=== PATIENT | female | born 1955 | race Caucasian/White ===

== ENCOUNTER → 2017-08-23 | Outpatient (CLI) | payer BC ==
--- NOTE | 2017-08-23 14:34 | CT ---
EXAMINATION TYPE: CT abdomen wo con DATE OF EXAM: 08/23/2017 COMPARISON: NONE HISTORY: Abdominal pain CT DLP: 372 mGycm Examination of the solid and hollow viscera is limited given the lack of intravenous contrast. GI con trast was administered. FINDINGS: LUNG BASES: No evidence for nodule. No evidence for infiltrate. Linear scar left lung base. LIVER/GB: The gallbladder is unremarkable. No space-occupying hepatic lesion. PANCREAS: No pancreatic mass identified. No inflammatory process seen. SPLEEN: No evidence for splenomegaly. No intrasplenic lesions seen. ADRENALS: No adrenal nodules identified. No evidence for thickening. KIDNEYS: No evidence for renal mass. No nephrolithiasis. No hydronephrosis. BOWEL: Appendix has a normal appearance. No evidence of bowel obstruction. No inflammatory process. Lymph nodes: No evidence for adenopathy greater than 1 cm. Abdominal aorta: Atheromatous changes seen. No evidence for aneurysm. Other: No significant abnormality. IMPRESSION: NO SIGNIFICANT ABNORMALITY APPRECIATED.
== END | disposition home or self-care (01) ==
LOC: RADCTMAIN 11:21
PROVIDERS: ATTEND Family Medicine
DX: R10.9 Unspecified abdominal pain (principal)
CPT/HCPCS: 74150

== ENCOUNTER → 2017-08-24 | Outpatient (CLI) | payer BC ==
--- NOTE | 2017-08-24 14:02 | US ---
EXAMINATION TYPE: US gallbladder DATE OF EXAM: 08/24/2017 COMPARISON: CT abdomen from yesterday. CLINICAL HISTORY: R10.11 right upper quadrant pain. right flank and RLQ pain; patient feels muscle sp asms with NPO status; patient stated was told had elevated pancreatic enzymes EXAM MEASUREMENTS: Liver Length: 15.5 cm Gallbladder Wall: 0.1 cm CBD: 0.6 cm near head of pancreas Right Kidney: cm Pancreas: wnl Liver: wnl Gallbladder: wnl Evidence for sonographic Choudhary's sign: No CBD: prominent at yahir hepatis, then size wnl at head of pancreas Right Kidney: No hydronephrosis or masses seen Aorta: upper size is wnl Visualized pancreas is unremarkable on ultrasound images saved. Visualized liver shows no worrisome i ntrahepatic mass or intrahepatic ductal dilatation. IMPRESSION: No gallstones or ultrasound evidence for acute cholecystitis. No significant change from recent CT.
== END | disposition home or self-care (01) ==
LOC: RADUSWWP 12:56
PROVIDERS: ATTEND Family Medicine
DX: R10.11 Right upper quadrant pain (principal)
CPT/HCPCS: 76705

== ENCOUNTER 2017-11-01 20:15 | Emergency (ER) | payer BC ==
[2017-11-01 20:44] VITALS: RESP 18
--- NOTE | 2017-11-01 21:04 | ED ---
General Adult HPI - General Chief complaint: Head Injury Stated complaint: Fell 5 ft/Lac/Head Time Seen by Provider: 11/01/17 20:40 Source: patient, RN notes reviewed Mode of arrival: ambulatory Limitations: no limitations - History of Present Illness Initial comments: Patient is a 7-year-old female who presents emergency room today with a chief complaint of a fall that occurred approximately 5 hours ago. She does admit that she was in her attic she fell down some stairs hitting the back of her head. States he was no loss of consciousness. She does admit that it did cause an abrasion to her head. She states she called her son who is an EMT came and checked him out. He states that she's been feeling fine since. She states that she has had a few episodes of bleeding to the back of her head. She states she was at dinner and decided to come here to the emergency room to have it checked. Patient states she believes her tetanus is up-to-date. She denies any other complaints or symptoms. States she's not on any blood thinners. Patient denies any recent fever, chills, shortness of breath, chest pain, back pain, abdominal pain, nausea or vomiting, numbness or tingling, dysuria or hematuria, constipation or diarrhea, headaches or visual changes, or any other complaints. - Related Data Home Medications Medication Instructions Recorded Confirmed Unable To Assess [Unable to Assess] 11/01/17 11/01/17 Allergies Allergy/AdvReac Type Severity Reaction Status Date / Time cephalexin [From Keflex] Allergy Rash/Hives Verified 11/01/17 20:41 codeine Allergy Rash/Hives Verified 11/01/17 20:41 diphenhydramine Allergy Rash/Hives Verified 11/01/17 20:41 [From Benadryl] Penicillins Allergy Rash/Hives Verified 11/01/17 20:41 Review of Systems ROS Statement: Those systems with pertinent positive or pertinent negative responses have been documented in the HPI. ROS Other: All systems not noted in ROS Statement are negative. Past Medical History Past Medical History: No Reported History History of Any Multi-Drug Resistant Organisms: None Reported Past Surgical History: Orthopedic Surgery Past Psychological History: No Psychological Hx Reported Smoking Status: Never smoker Past Alcohol Use History: None Reported Past Drug Use History: None Reported General Exam - General Exam Comments Initial Comments: General: The patient is awake and alert, in no distress, and does not appear acutely ill. Eye: Pupils are equal, round and reactive to light, extra-ocular movements are intact. No nystagmus. There is normal conjunctiva bilaterally. No signs of icterus. Ears, nose, mouth and throat: There are moist mucous membranes and no oral lesions. Neck: The neck is supple, there is no tenderness or JVD. Cardiovascular: There is a regular rate and rhythm. No murmur, rub or gallop is appreciated. Respiratory: Lungs are clear to auscultation, respirations are non-labored, breath sounds are equal. No wheezes, stridor, rales, or rhonchi. Musculoskeletal: Normal ROM, no tenderness. Strength 5/5. Sensation intact. Pulses equal bilaterally 2+. Neurological: A&O x 3. CN II-XII intact, There are no obvious motor or sensory deficits. Coordination appears grossly intact. Speech is normal. Skin: Superficial abrasion to the posterior aspect of the head with no active bleeding at this time. No hematoma. No area of active bleeding. Psychiatric: Cooperative, appropriate mood & affect, normal judgment. Limitations: no limitations Course Vital Signs 11/01/17 20:41 Temperature 98.5 F Pulse Rate 84 Respiratory 18 Rate Blood Pressure 141/89 O2 Sat by Pulse 98 Oximetry Medical Decision Making - Medical Decision Making She has no other complaints from the emergency room other than some bleeding coming from the abrasion site. Patient denies any headache. Denies any neck pain. Denies any blurry vision. Denies any nausea or vomiting. Patient states she is unsure of tetanus status isn't up-to-date has declined tetanus here today. Patient does have an abrasion to the occipital area. No active bleeding. Was discussed about trying some clue there is no area to staple. Patient's decline glue. She states she feels comfortable being discharged will continue with ice as needed. Advised patient to return if there is any other NSAIDs. Disposition Clinical Impression: Head injury, Abrasion head Disposition: HOME SELF-CARE Condition: Good Instructions: Head Injury (ED) Additional Instructions: Please return to emergency room symptoms increase or worsen or for any other concerns. Referrals: Jose Luis Perez MD [Primary Care Provider] - 1-2 days Time of Disposition: 21:04
[2017-11-01 21:13] VITALS: BP 133/78; PULSE 80; TEMP 98.3
== END 2017-11-01 21:13 | disposition home or self-care (01) ==
LOC: EC 20:15
DX: S00.01XA Abrasion of scalp, initial encounter (principal); Z88.1 Allergy status to other antibiotic agents; Z88.0 Allergy status to penicillin; Z88.5 Allergy status to narcotic agent; Z88.8 Allergy status to other drugs, medicaments and biological substances; W10.9XXA Fall (on) (from) unspecified stairs and steps, initial encounter
CPT/HCPCS: 99283

== ENCOUNTER 2017-12-06 16:51 | Emergency (ER) | payer BC ==
[2017-12-06] MEDS ORDERED: MORPHINE SULFATE 4 MG/ML SYRINGE IVP STA ×2 (17:24→20:41)
--- NOTE | 2017-12-06 17:29 | ED ---
Fall HPI - General Chief Complaint: Fall Stated Complaint: Knee Injury Time Seen by Provider: 12/06/17 17:02 Source: patient, RN notes reviewed, old records reviewed Mode of arrival: wheelchair - History of Present Illness Initial Comments: This patient is a 62-year-old female presents emergency department today chief complaint of left hip, thigh, knee pain. Patient reports that she was standing on a bucket to wash her car when she slipped and fell and landed on her left leg. Patient reports that she felt like her knee popped and went out of place. She did arrive here with her son and she was placed in a splint. Patient ports that she can feel me touch her feet. At this time she was refusing for me to remove her shoes due to significant pain. Patient reports that she's had no previous orthopedic surgeries. She denies any head injury or neck injury. Denies any back pain, or arm or other extremity injuries. - Related Data Home Medications Medication Instructions Recorded Confirmed Unable To Assess [Unable to Assess] 11/01/17 11/01/17 Allergies Allergy/AdvReac Type Severity Reaction Status Date / Time cephalexin [From Keflex] Allergy Rash/Hives Verified 12/06/17 16:52 codeine Allergy Rash/Hives Verified 12/06/17 16:52 diphenhydramine Allergy Rash/Hives Verified 12/06/17 16:52 [From Benadryl] Penicillins Allergy Rash/Hives Verified 12/06/17 16:52 Review of Systems ROS Statement: Those systems with pertinent positive or pertinent negative responses have been documented in the HPI. ROS Other: All systems not noted in ROS Statement are negative. Past Medical History Past Medical History: No Reported History History of Any Multi-Drug Resistant Organisms: None Reported Past Surgical History: Orthopedic Surgery Past Psychological History: No Psychological Hx Reported Smoking Status: Never smoker Past Alcohol Use History: None Reported Past Drug Use History: None Reported General Exam - General Exam Comments Initial Comments: Patient is a 62-year-old female. She appears in significant discomfort. Limitations: no limitations General appearance: alert, in no apparent distress Head exam: Present: atraumatic, normocephalic, normal inspection Eye exam: Present: normal appearance, PERRL, EOMI. Absent: scleral icterus, conjunctival injection, periorbital swelling ENT exam: Present: normal exam, mucous membranes moist Neck exam: Present: normal inspection. Absent: tenderness, meningismus, lymphadenopathy Respiratory exam: Present: normal lung sounds bilaterally. Absent: respiratory distress, wheezes, rales, rhonchi, stridor Cardiovascular Exam: Present: regular rate, normal rhythm, normal heart sounds. Absent: systolic murmur, diastolic murmur, rubs, gallop, clicks Extremities exam: Present: normal inspection, full ROM, normal capillary refill. Absent: tenderness, pedal edema, joint swelling, calf tenderness Left Upper Leg exam: Absent: normal inspection, full ROM Knee exam: Present: tenderness, swelling. Absent: normal inspection (effusion, not able to preform ROM), full ROM, abrasion, laceration Lower Leg exam: Present: normal inspection, full ROM Ankle exam: Present: normal inspection, full ROM Foot/Toe exam: Present: normal inspection Neurovascular tendon exam: Present: no vascular compromise (Vision is to plaster cells pedis pulse.) Gait: unable to bear weight Back exam: Present: normal inspection Neurological exam: Present: alert, oriented X3, CN II-XII intact Psychiatric exam: Present: normal affect, normal mood Skin exam: Present: warm, dry, intact, normal color. Absent: rash Course Vital Signs 12/06/17 12/06/17 16:52 19:02 Temperature 97.7 F 99.0 F Pulse Rate 77 75 Respiratory 17 16 Rate Blood Pressure 170/77 144/69 O2 Sat by Pulse 97 99 Oximetry Procedures - Orthopedic Splinting/Casting Injury #1 Side: left Lower Extremity Injury Location: knee Lower Extremity Immobilizer: knee immobilizer Medical Decision Making - Medical Decision Making Patient is 62-year-old female chief complaint of severe left knee pain after a fall after standing on a bucket while she was washing her car. Patient has no range of motion of the knee without significant pain. Significant effusion noted at this time. She does have dorsalis pedis pulse. Patient was given IV fluids and pain medicine. Patient has evidence of an intra-articular fracture of the left tibial plateau. Femur and hip x-rays were reviewed and negative for any acute process. Chest x-ray was normal. Normal CBC and BMP at this time. We discussed the x-rays with our on-call orthopedic physician Dr. Choudhary. He does not feel comfortable with the exception of the patient's fracture as it is an intra-articular fracture as well. He requests the patient be transferred to [facility]. I discussed this with Dr. Avila. He accepts the transfer. Patient will be placed in a knee immobilizer prior to transfer. - Lab Data Result diagrams: 12/06/17 17:37 12/06/17 17:37 Lab Results 12/06/17 12/06/17 12/06/17 Range/Units 17:37 17:37 17:37 WBC 10.4 (3.8-10.6) k/uL RBC 4.92 (3.80-5.40) m/uL Hgb 13.8 (11.4-16.0) gm/dL Hct 42.2 (34.0-46.0) % MCV 85.7 (80.0-100.0) fL MCH 28.1 (25.0-35.0) pg MCHC 32.8 (31.0-37.0) g/dL RDW 12.2 (11.5-15.5) % Plt Count 318 (150-450) k/uL Neutrophils % 60 % Lymphocytes % 30 % Monocytes % 6 % Eosinophils % 1 % Basophils % 0 % Neutrophils # 6.2 (1.3-7.7) k/uL Lymphocytes # 3.2 (1.0-4.8) k/uL Monocytes # 0.6 (0-1.0) k/uL Eosinophils # 0.1 (0-0.7) k/uL Basophils # 0.0 (0-0.2) k/uL PT 10.9 (9.0-12.0) sec INR 1.1 (<1.2) APTT 21.6 L (22.0-30.0) sec Sodium 136 L (137-145) mmol/L Potassium 4.0 (3.5-5.1) mmol/L Chloride 102 (98-107) mmol/L Carbon Dioxide 21 L (22-30) mmol/L Anion Gap 13 mmol/L BUN 15 (7-17) mg/dL Creatinine 0.71 (0.52-1.04) mg/dL Est GFR (MDRD) Af Amer >60 (>60 ml/min/1.73 sqM) Est GFR (MDRD) Non-Af >60 (>60 ml/min/1.73 sqM) Glucose 140 H (74-99) mg/dL Calcium 9.3 (8.4-10.2) mg/dL - Radiology Data Radiology results: report reviewed S x-ray shows no active cardiopulmonary disease. No heart no fracture noted. Tib-fib shows evidence of Mildly depressed fracture of the medial tibial condyle. femur xray shows Intra-articular fracture of the medial tibial condyle slight depression of the fragment. Knee joint effusion. Negative left hip exam. Normal pelvis. Disposition Clinical Impression: Knee fracture, left Disposition: DC/TRNS INTERMEDIATE CARE FAC Condition: Good Referrals: Jose Luis Perez MD [Primary Care Provider] - 1-2 days Time of Disposition: 19:27 - Out of Hospital Transfer - Req. Specs Out of Hospital Transfer - Requested Specifics: Other Emergency Center ([facility])
[2017-12-06 17:54] LABS: Basophils % (A) 0 %; Eosinophils # (A) 0.1 k/uL (0-0.7); Eosinophils % (A) 1 %; HCT 42.2 % (34.0-46.0); HGB 13.8 gm/dL (11.4-16.0); Lymphocytes # (A) 3.2 k/uL (1.0-4.8); Lymphocytes % (A) 30 %; MCH 28.1 pg (25.0-35.0); MCHC 32.8 g/dL (31.0-37.0); MCV 85.7 fL (80.0-100.0); Mean Platelet Volume 7.1; Monocytes # (A) 0.6 k/uL (0-1.0); Monocytes % (A) 6 %; Neutrophils # (A) 6.2 k/uL (1.3-7.7); Neutrophils % (A) 60 %; Platelet Count 318 k/uL (150-450); RBC 4.92 m/uL (3.80-5.40); RDW 12.2 % (11.5-15.5); WBC 10.4 k/uL (3.8-10.6)
[2017-12-06 18:01] LABS: Anion Gap 13 mmol/L; Blood Urea Nitrogen 15 mg/dL (7-17); Calcium 9.3 mg/dL (8.4-10.2); Carbon Dioxide 21 mmol/L (22-30); Chloride 102 mmol/L (98-107); Glucose 140 mg/dL (74-99); Sodium 136 mmol/L (137-145)
[2017-12-06 18:05] LABS: INR 1.1 (<1.2); Prothrombin Time 10.9 sec (9.0-12.0)
[2017-12-06 18:20] LABS: Partial Thromboplastin Time 21.6 sec (22.0-30.0)
--- NOTE | 2017-12-06 19:00 | XR ---
EXAMINATION TYPE: XR chest 2V DATE OF EXAM: 12/06/2017 COMPARISON: NONE HISTORY: Fall and chest pain TECHNIQUE: Frontal and lateral views of the chest are obtained. FINDINGS: There is no heart failure nor confluent pneumonic infiltrate. Costophrenic angles are taj r. Bony thorax is intact. IMPRESSION: No active cardiopulmonary disease. Normal heart. No fracture seen.
--- NOTE | 2017-12-06 19:02 | XR ---
EXAMINATION TYPE: XR tibia fibula LT DATE OF EXAM: 12/06/2017 COMPARISON: NONE HISTORY: Fall and knee pain TECHNIQUE: 2 views FINDINGS: There is a slightly impacted fracture of the medial tibial condyle. There is some depressio n of the fragment of 5 mm. There is posterior displacement on the lateral view. There is no dislocati on. Ankle joint appears anatomic. IMPRESSION: Mildly depressed fracture of the medial tibial condyle.
--- NOTE | 2017-12-06 19:03 | XR ---
EXAMINATION TYPE: XR femur LT DATE OF EXAM: 12/06/2017 COMPARISON: NONE HISTORY: Fall and pain TECHNIQUE: 4 views FINDINGS: There is a knee joint effusion. There is a fracture of the medial tibial condyle and platea u with slight depression of the fragment. The proximal femur and hip joint are intact. Hip joint spac e is normal. IMPRESSION: Intra-articular fracture of the medial tibial condyle with slight depression of the fragm ent. Knee joint effusion.
--- NOTE | 2017-12-06 19:18 | XR ---
EXAMINATION TYPE: XR Hip LT and AP Pelvis DATE OF EXAM: 12/06/2017 COMPARISON: NONE HISTORY: Fall today. Pain. TECHNIQUE: A single AP view of the pelvis is obtained. Two views of the left hip are obtained. FINDINGS: The pelvic ring is intact. Proximal femurs and hip joints are intact. Hip joint spaces are fairly normal. Sacroiliac joints appear normal. CONCLUSION: Negative left hip exam. Normal pelvis.
[2017-12-06 20:18] VITALS: BP 140/80; PULSE 78; RESP 20; TEMP 98
== END 2017-12-06 20:30 ==
LOC: EC 16:51
DX: S82.142A Displaced bicondylar fracture of left tibia, initial encounter for closed fracture (principal); M25.462 Effusion, left knee; M25.552 Pain in left hip; M79.652 Pain in left thigh; Z88.0 Allergy status to penicillin; Z88.1 Allergy status to other antibiotic agents; Z88.5 Allergy status to narcotic agent; Z88.8 Allergy status to other drugs, medicaments and biological substances; Z98.890 Other specified postprocedural states; W01.0XXA Fall on same level from slipping, tripping and stumbling without subsequent striking against object, initial encounter; Y93.89 Activity, other specified; Y92.009 Unspecified place in unspecified non-institutional (private) residence as the place of occurrence of the external cause
CPT/HCPCS: 99285; 96374; 96376; 36415; 80048; 85025; 85610; 85730; 73502; 73552; 73590; 71046; L1830; J2270

== ENCOUNTER 2024-07-26 18:35 | Emergency (ER) | payer BC ==
[2024-07-26 18:51] VITALS: TEMP 97.5
--- NOTE | 2024-07-26 20:12 | ED ---
Recheck HPI - General Source: patient, RN notes reviewed Mode of arrival: ambulatory Limitations: no limitations <Carmelita Hathaway - Last Filed: 07/26/24 20:11> <Kaylynn Huddleston - Last Filed: 07/27/24 02:49> - General Chief Complaint: Recheck/Abnormal Lab/Rx Stated Complaint: Hypertension Time Seen by Provider: 07/26/24 20:11 - History of Present Illness Initial Comments: Quick note: 68-year-old female presenting to the ER with a chief complaint of elevated blood pressure. Patient has no history of hypertension and is on no medications. She does take supplements daily. She has no acute complaints. Patient states she noticed her cheeks were more red which prompted her to go to her chiropractor which she states access her PCP. Blood pressure was taken at that time and found to be elevated and he sent her to the ER for further evaluation. (Caremlita Hathaway) This is a 68-year-old female with no significant past medical history who presents to the emergency department chief complaint of hypertension. She states that she felt flushed this evening when she went to her chiropractor w here they did an adjustment and checked her blood pressure and advised her to report to the emergency department for further evaluation. She denies chest pain, shortness of breath, difficulty breathing, headaches, blurry or double vision, heart palpitations. Patient denies previous medication for hypertension. (Kaylynn Huddleston) - Related Data Previous Rx's Medication Instructions Recorded amLODIPine [Norvasc] 2.5 mg PO DAILY #20 tablet 07/26/24 Allergies Allergy/AdvReac Type Severity Reaction Status Date / Time cephalexin [From Keflex] Allergy Rash/Hives Verified 07/26/24 18:51 codeine Allergy Rash/Hives Verified 07/26/24 18:51 diphenhydramine Allergy Rash/Hives Verified 07/26/24 18:51 [From Benadryl] Penicillins Allergy Rash/Hives Verified 07/26/24 18:51 Review of Systems ROS Other: All systems not noted in ROS Statement are negative. <Carmelita Hathaway - Last Filed: 07/26/24 20:11> ROS Other: All systems not noted in ROS Statement are negative. <Kaylynn Huddleston - Last Filed: 07/27/24 02:49> ROS Statement: Those systems with pertinent positive or pertinent negative responses have been documented in the HPI. Past Medical History Past Medical History: No Reported History History of Any Multi-Drug Resistant Organisms: None Reported Past Surgical History: Orthopedic Surgery Past Psychological History: No Psychological Hx Reported Past Alcohol Use History: None Reported Past Drug Use History: None Reported <Carmelita Hathaway - Last Filed: 07/26/24 20:11> General Exam Limitations: no limitations <Carmelita Hathaway - Last Filed: 07/26/24 20:11> General appearance: alert, in no apparent distress Head exam: Present: atraumatic, normocephalic, normal inspection Eye exam: Present: normal appearance, PERRL, EOMI. Absent: scleral icterus, conjunctival injection, periorbital swelling Neck exam: Present: normal inspection. Absent: tenderness, meningismus, lymphadenopathy Respiratory exam: Present: normal lung sounds bilaterally. Absent: respiratory distress, wheezes, rales, rhonchi, stridor Cardiovascular Exam: Present: regular rate, normal rhythm, normal heart sounds. Absent: systolic murmur, diastolic murmur, rubs, gallop, clicks GI/Abdominal exam: Present: soft, normal bowel sounds. Absent: distended, tenderness, guarding, rebound, rigid Extremities exam: Present: normal inspection, full ROM, normal capillary refill. Absent: tenderness, pedal edema, joint swelling, calf tenderness Back exam: Present: normal inspection Skin exam: Present: warm, dry, intact, normal color. Absent: rash <Kaylynn Huddleston - Last Filed: 07/27/24 02:49> - General Exam Comments Initial Comments: Visual Physical Exam Vital signs reviewed General: Well-appearing, nontoxic, no acute distress. 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 Electronically signed by Carmelita Hathaway PA-C (Carmelita Hathaway) Was pt. sent in by a medical professional or institution ([facility]gregor, [employer], urgent care, hospital, or longterm...) When possible be specific @ -Patient is advised by chiropractor report to the Emergency Department for further evaluation of hypertension. Did you speak to anyone other than the patient for history (EMS, parent, family, police, friend...)? What history was obtained from this source @ -No Did you review nursing and triage notes (agree or disagree)? Why? @ -I reviewed and agree with nursing and triage notes Were old charts reviewed (outside hosp., previous admission, EMS record, old EKG, old radiological studies, urgent care reports/EKG's, longterm records)? Report findings @ -No old charts were reviewed Differential Diagnosis (chest pain, altered mental status, abdominal pain women, abdominal pain men, vaginal bleeding, weakness, fever, dyspnea, syncope, headache, dizziness, GI bleed, back pain, seizure, CVA, palpatations, mental health, musculoskeletal)? @ -hypertensive urgency, hypertensive emergency, electrolyte imbalance, arrythmia, this list is not all inclusive EKG interpreted by me (3pts min.). @ -completed at 2104 sinus rhythm with a ventricular rate of 74, MI interval 160, QRS 70, QTc 343. No acute signs of ischemia. X-rays interpreted by me (1pt min.). @ -None done CT interpreted by me (1pt min.). @ -None done U/S interpreted by me (1pt. min.). @ -None done What testing was considered but not performed or refused? (CT, X-rays, U/S, labs)? Why? @ -None What meds were considered but not given or refused? Why? @ -None Did you discuss the management of the patient with other professionals (professionals i.e. , PA, [employer], lab, RT, psych nurse, social services coordinator, mail rider, teacher, tank officer, outsole caser)? Give summary @ -No Was smoking cessation discussed for >3mins.? @ -No Was critical care preformed (if so, how long)? @ -No Were there social determinants of health that impacted care today? How? (Homelessness, low income, unemployed, alcoholism, drug addiction, garcia sportation, low edu. Level, literacy, decrease access to med. care, retirement, rehab)? @ -No Was there de-escalation of care discussed even if they declined (Discuss DNR or withdrawal of care, Hospice)? DNR status @ -No What co-morbidities impacted this encounter? (DM, HTN, Smoking, COPD, CAD, Cancer, CVA, ARF, Chemo, Hep., AIDS, mental health diagnosis, sleep apnea, morbid obesity)? @ -None Was patient admitted / discharged? Hospital course, mention meds given and route, prescriptions, significant lab abnormalities, going to OR and other pertinent info. @ -Discharge. 68-year-old female with hypertension. Patient was originally evaluated the emergency department waiting room as a quick note where laboratory studies were ordered and EKG was completed. Patient's EKG reveals sinus rhythm. Initial vitals reveal a hypertension with blood pressure of 202/109 and a heart rate of 78. On examination she is denying acute complaints and states that she feels flushed. Patient is provided with IV push of hydralazine. Laboratory studies including CBC, CMP, urinalysis are grossly unremarkable. Patient's blood pressure has responded to hydralazine with repeat level of 177/80 and a heart rate of 80. Patient will be discharged with low-dose Norvasc to take 1 time per day and instructed to establish care with primary care provider and follow-up outpatient for further evaluation of hypertension. All questions answered at bedside strict return parameters discussed with the patient she is verbalized understanding. Case discussed with Dr. Zurita Undiagnosed new problem with uncertain prognosis? @ -No Drug Therapy requiring intensive monitoring for toxicity (Heparin, Nitro, Insulin, Cardizem)? @ -No Were any procedures done? @ -No Diagnosis/symptom? @ -hypertension Acute, or Chronic, or Acute on Chronic? @ -Acute Uncomplicated (without systemic symptoms) or Complicated (systemic symptoms)? @ -uncomplicated Side effects of treatment? @ -No Exacerbation, Progression, or Severe Exacerbation? @ -No Poses a threat to life or bodily function? How? (Chest pain, [place], [place], pneumonia, PE, COPD, DKA, ARF, appy, cholecystitis, CVA, Diverticulitis, Homicidal, Suicidal, threat to staff... and all critical care pts) @ -No (Enedinar,Kaylynn) - Lab Data Lab Results 07/26/24 07/26/24 07/26/24 Range/Units 21:12 21:30 21:30 WBC 9.1 (3.8-10.6) k/uL RBC 5.45 H (3.80-5.40) m/uL Hgb 15.4 (11.4-16.0) gm/dL Hct 48.3 H (34.0-46.0) % MCV 88.6 (80.0-100.0) fL MCH 28.2 (25.0-35.0) pg MCHC 31.8 (31.0-37.0) g/dL RDW 12.7 (11.5-15.5) % Plt Count 301 (150-450) k/uL MPV 7.2 Neutrophils % 74 % Lymphocytes % 19 % Monocytes % 4 % Eosinophils % 0 % Basophils % 0 % Neutrophils # 6.8 (1.3-7.7) k/uL Lymphocytes # 1.7 (1.0-4.8) k/uL Monocytes # 0.4 (0-1.0) k/uL Eosinophils # 0.0 (0-0.7) k/uL Basophils # 0.0 (0-0.2) k/uL Sodium 137 (137-145) mmol/L Potassium 4.6 (3.5-5.1) mmol/L Chloride 105 (98-107) mmol/L Carbon Dioxide 26 (22-30) mmol/L Anion Gap 6 mmol/L BUN 12 (7-17) mg/dL Creatinine 0.68 (0.52-1.04) mg/dL Est GFR (CKD-EPI)AfAm >90 (>60 ml/min/1.73 sqM) Est GFR (CKD-EPI)NonAf >90 (>60 ml/min/1.73 sqM) Glucose 171 H (74-99) mg/dL Calcium 9.7 (8.4-10.2) mg/dL Total Bilirubin 0.5 (0.2-1.3) mg/dL AST 20 (14-36) U/L ALT 26 (4-34) U/L Alkaline Phosphatase 130 H (38-126) U/L Total Protein 7.3 (6.3-8.2) g/dL Albumin 4.5 (3.5-5.0) g/dL Urine Color Colorless Urine Appearance Clear (Clear) Urine pH 6.5 (5.0-8.0) Ur Specific [place] 1.007 (1.001-1.035) Urine Protein Negative (Negative) Urine Glucose (UA) Trace H (Negative) Urine Ketones Negative (Negative) Urine Blood Negative (Negative) Urine Nitrite Negative (Negative) Urine Bilirubin Negative (Negative) Urine Urobilinogen <2.0 (<2.0) mg/dL Ur Leukocyte Esterase Moderate H (Negative) Urine RBC 1 (0-5) /hpf Urine WBC 4 (0-5) /hpf Ur Squamous Epith Cells <1 (0-4) /hpf Disposition <Carmelita Hathaway - Last Filed: 07/26/24 20:11> Is patient prescribed a controlled substance at d/c from ED?: No Time of Disposition: 23:51 <Kaylynn Huddleston - Last Filed: 07/27/24 02:49> Clinical Impression: Hypertension Disposition: HOME SELF-CARE Condition: Good Instructions (If sedation given, give patient instructions): Hypertension (ED) Additional Instructions: Please return to the Emergency Department if symptoms worsen or any other concerns. Recommend that you establish care with a primary care provider and follow-up outpatient for further evaluation of hypertension. Take medication as directed. Prescriptions: amLODIPine [Norvasc] 2.5 mg PO DAILY #20 tablet Referrals: None,Stated [Primary Care Provider] - 1-2 days
[2024-07-26 21:55] LABS: Basophils % (A) 0 %; Eosinophils % (A) 0 %; HCT 48.3 % (34.0-46.0); HGB 15.4 gm/dL (11.4-16.0); Lymphocytes # (A) 1.7 k/uL (1.0-4.8); Lymphocytes % (A) 19 %; MCH 28.2 pg (25.0-35.0); MCHC 31.8 g/dL (31.0-37.0); MCV 88.6 fL (80.0-100.0); Mean Platelet Volume 7.2; Monocytes # (A) 0.4 k/uL (0-1.0); Monocytes % (A) 4 %; Neutrophils # (A) 6.8 k/uL (1.3-7.7); Neutrophils % (A) 74 %; Platelet Count 301 k/uL (150-450); RBC 5.45 m/uL (3.80-5.40); RDW 12.7 % (11.5-15.5); WBC 9.1 k/uL (3.8-10.6)
[2024-07-26 22:08] LABS: Appearance,Urine Clear (Clear); Bilirubin,Urine Negative (Negative); Blood,Urine Negative (Negative); Color,Urine Colorless; Glucose,Urine (UA) Trace (Negative); Ketones,Urine Negative (Negative); Leukocyte Esterase,Urine Moderate (Negative); Nitrite,Urine Negative (Negative); PH, Urine 6.5 (5.0-8.0); Protein,Urine Negative (Negative); RBC,Urine 1 /hpf (0-5); Specific Gravity,Urine 1.007 (1.001-1.035); Squamous Epithelial Cell,Urine <1 /hpf (0-4); Urobilinogen,Urine <2.0 mg/dL (<2.0); WBC,Urine 4 /hpf (0-5)
[2024-07-26 22:22] LABS: ALT 26 U/L (4-34); AST 20 U/L (14-36); African American GFR (CKD) >90 (>60 ml/min/1.73 sqM); Albumin 4.5 g/dL (3.5-5.0); Alkaline Phosphatase 130 U/L (38-126); Anion Gap 6 mmol/L; Blood Urea Nitrogen 12 mg/dL (7-17); Calcium 9.7 mg/dL (8.4-10.2); Carbon Dioxide 26 mmol/L (22-30); Chloride 105 mmol/L (98-107); Glucose 171 mg/dL (74-99); Non-African American GFR(CKD) >90 (>60 ml/min/1.73 sqM); Potassium 4.6 mmol/L (3.5-5.1); Sodium 137 mmol/L (137-145); Total Bilirubin 0.5 mg/dL (0.2-1.3); Total Protein 7.3 g/dL (6.3-8.2)
[2024-07-26 23:14] VITALS: RESP 18
[2024-07-26] MEDS: hydrALAZINE HCL 20 MG/ML 1 ML VIAL IVP STA (23:27)
[2024-07-27 00:39] VITALS: BP 177/80; PULSE 80
== END 2024-07-27 00:51 | disposition home or self-care (01) ==
LOC: EC 18:35
CPT/HCPCS: 36415; 80053; 81001; 85025; 93005; 96374; 99283